=== PATIENT | male | born 1960 | race African-American/Black ===

== ENCOUNTER 2017-10-22 16:52 | Observation (INO) | payer OTHER ==
[~2017-10-22] VITALS: Ht 165.1 cm; Wt 79.3 kg
[2017-10-22] VITALS (11 sets, daily range): BP systolic 96–138; BP diastolic 63–85; PULSE 55–63; TEMP 36.4–36.7; O2SAT 97–99; Ht 165.1 cm; Wt 79.3 kg
[2017-10-22] MEDS ORDERED: ONDANSETRON INJ 2 MG/ML 2 ML VIAL IV STA (17:01)
[2017-10-22] MEDS ORDERED: SODIUM CHLORIDE 0.9% 1000ML 1,000 ML IV STA (17:01)
[2017-10-22] MEDS ORDERED: NiCARDipine HCL INJ 2.5 MG/ML 10 ML AMP ONE (17:06)
[2017-10-22] MEDS ORDERED: MIDAZOLAM HCL 1 MG/ML 2ML VIAL ONE (17:06)
[2017-10-22] MEDS ORDERED: HEPARIN SOD (PORCINE) 1000 UNIT/ML 10 ML VIAL ONE (17:06)
[2017-10-22] MEDS ORDERED: FENTANYL CITRATE INJ 50 MCG/1 ML 2 ML VIAL ONE (17:06)
[2017-10-22] MEDS ORDERED: NITROGLYCERIN/D5W 100MCG/ML 20ML SYR ONE (17:09)
[2017-10-22 17:14] LABS: BASO % 0.2 %; BASO ABS # 0.01 K/uL (0-0.2); EOS % 2.8 %; EOS ABS # 0.13 K/uL (0-0.5); HEMOGLOBIN 14.3 g/dL (14.0-18.0); LYMPH % 45.4 %; LYMPH ABS # 2.12 K/uL (1.2-3.4); MEAN CELL VOLUME 80.1 fL (80-100); MEAN CORPUSCULAR HEMOGLOBIN 26.6 pg (25-34); MEAN CORPUSCULAR HGB CONC 33.3 g/dl (32-36); MEAN PLATELET VOLUME 10.2 fL (7.4-10.4); MONO % 7.5 %; MONO ABS # 0.35 K/uL (0.11-0.59); NEUT % 44.1 %; NEUT ABS # 2.06 K/uL (1.4-6.5); PLATELET COUNT 281 K/uL (130-400); RED CELL DISTRIBUTION WIDTH CV 14.1 % (11.5-14.5); RED CELL DISTRIBUTION WIDTH SD 41.3 fL (36.4-46.3); WHITE BLOOD COUNT 4.67 K/uL (4.8-10.8)
[2017-10-22] MEDS ORDERED: HEPARIN SOD (PORCINE) 1000 UNIT/ML 10 ML VIAL IV ONE (17:15)
[2017-10-22 17:21] LABS: ISTAT CREATININE 1.1 mg/dl (0.6-1.3); ISTAT IONIZED CALCIUM 1.24 mmol/l (1.12-1.32); ISTAT POTASSIUM 4.3 mEq/L (3.3-5.0)
[2017-10-22 17:23] LABS: INR 0.9 (0.9-1.1)
--- NOTE | 2017-10-22 17:32 | DIAGNOSTIC IMAGING REPORT ---
CHEST ONE VIEW PORTABLE CLINICAL HISTORY: Chest pain. COMPARISON STUDY: No previous studies for comparison. FINDINGS: Lung volumes are at the lower limits of normal. Linear right lower lung opacity suggests atelectasis. No consolidation is noted to suggest pneumonia and there is no evidence for pulmonary edema. Borderline cardiomegaly is accentuated on this portable AP study. IMPRESSION: No acute cardiopulmonary findings. Electronically signed by: Paresh Fernandez M.D. 10/22/2017 5:31 PM Dictated Date/Time: 10/22/2017 5:30 PM
[2017-10-22 17:40] LABS: ALBUMIN 3.6 gm/dl (3.4-5.0); ALKALINE PHOSPHATASE 63 U/L (45-117); ALT/SGPT 24 U/L (12-78); AST/SGOT 15 U/L (15-37); BLOOD UREA NITROGEN 13 mg/dl (7-18); CALCIUM 8.8 mg/dl (8.5-10.1); CARBON DIOXIDE 28 mmol/L (21-32); GLUCOSE 90 mg/dl (70-99); LIPASE 161 U/L (73-393); POTASSIUM 4.2 mmol/L (3.5-5.1); SODIUM 139 mmol/L (136-145); TOTAL PROTEIN 7.6 gm/dl (6.4-8.2)
--- NOTE | 2017-10-22 17:45 | EMERGENCY ROOM VISIT NOTE ---
History Report prepared by Debbie: Maylin Titus Under the Supervision of: Dr. Dylon Velarde M.D. First contact with patient: 16:55 Stated Complaint: CHEST PAIN History of Present Illness The patient is a 57 year old male who presents to the Emergency Room with complaints of constant chest pain. Per EMS, the patient was benching 140 pounds last night when the chest pain began. Per EMS, the patient was given nitroglycerin and aspirin in the ambulance. The patient states that previously felt nauseous, and currently feels lightheaded, has indigestion, and states that his abdomen feels "crampy". The patient states that the pain lasted all night and into today. The patient rates his pain as a 6/10 prior to the nitroglycerin and aspirin, but states that it is now 3/10. Per the patient, he has never had this before. The patient also states that he got had a catheterization in August, two months ago, but states that no blockages were found. The patient states that he is a former smoker. He also states that his father of a heart attack at the age of 44. Per EMS, the patient previously got thyroid blood studies and is currently supposed to be on medication but is not currently. Source of History: patient, EMS Onset: last night Position: chest Quality: other (pain; 3/10 on arrival) Timing: constant Modifying Factors (Relieving): other (nitroglycerin and aspirin ) Associated Symptoms: + nausea Note: additional symptoms: lightheaded, indigestion, "crampy" abdomen Review of Systems See HPI for pertinent positives and negatives. A total of ten systems were reviewed and were otherwise negative. Past Medical & Surgical Medical Problems: (1) Chest pain Family History FH: heart disease Social History Smoking Status: Former Smoker Allergies Coded Allergies: No Known Allergies (Unverified , 10/22/17) Physical Exam Vital Signs Date Time Temp Pulse Resp B/P (MAP) Pulse Ox O2 Delivery O2 Flow Rate FiO2 10/22/17 18:02 55 20 121/70 (87) 99 Room Air 10/22/17 17:57 56 18 132/76 (94) 100 Room Air 10/22/17 17:52 53 18 126/74 (91) 100 Room Air 10/22/17 17:20 36.7 56 18 125/78 99 10/22/17 17:12 56 18 125/78 99 Nasal Cannula 2.0 10/22/17 17:08 Room Air 10/22/17 17:07 Nasal Cannula 2.0 10/22/17 17:07 Nasal Cannula 10/22/17 17:06 60 10/22/17 17:03 36.7 57 18 115/80 97 Nasal Cannula 2.0 Physical Exam GENERAL: Awake, alert, well-appearing, in no distress HENT: Normocephalic, atraumatic. Oropharynx unremarkable. EYES: Normal conjunctiva. Sclera non-icteric. NECK: Supple. No nuchal rigidity. RESPIRATORY: Clear to auscultation. No wheezes. Normal respiratory effort. CARDIAC: Normal rate. Normal rhythm. Extremities warm and well perfused. GI: Soft, non-distended. No tenderness to palpation. No rebound or guarding. No masses. RECTAL: Deferred. MUSCULOSKELETAL: Atraumatic. Chest examination reveals no tenderness. There is no CVA tenderness to palpation. LOWER EXTREMITIES: Calves are equal size bilaterally and non-tender. No edema NEURO: Normal sensorium. No sensory or motor deficits noted. No facial droop. SKIN: Warm and dry. No rash or jaundice. Healed scar on his anterior chest. Medical Decision & Procedures ER Provider Diagnostic Interpretation: Radiology results as stated below per my review and radiologist interpretation: CHEST ONE VIEW PORTABLE CLINICAL HISTORY: Chest pain. COMPARISON STUDY: No previous studies for comparison. FINDINGS: Lung volumes are at the lower limits of normal. Linear right lower lung opacity suggests atelectasis. No consolidation is noted to suggest pneumonia and there is no evidence for pulmonary edema. Borderline cardiomegaly is accentuated on this portable AP study. IMPRESSION: No acute cardiopulmonary findings. Electronically signed by: Paresh Fernandez M.D. 10/22/2017 5:31 PM Dictated Date/Time: 10/22/2017 5:30 PM Laboratory Results 10/22/17 17:01 Red Blood Count 5.37, Mean Corpuscular Volume 80.1, Mean Corpuscular Hemoglobin 26.6, Mean Corpuscular Hemoglobin Concent 33.3, Mean Platelet Volume 10.2, Neutrophils (%) (Auto) 44.1, Lymphocytes (%) (Auto) 45.4, Monocytes (%) (Auto) 7.5, Eosinophils (%) (Auto) 2.8, Basophils (%) (Auto) 0.2, Neutrophils # (Auto) 2.06, Lymphocytes # (Auto) 2.12, Monocytes # (Auto) 0.35, Eosinophils # (Auto) 0.13, Basophils # (Auto) 0.01 10/22/17 17:01 Test 10/22/17 17:01 10/22/17 17:06 White Blood Count 4.67 K/uL (4.8-10.8) Red Blood Count 5.37 M/uL (4.7-6.1) Hemoglobin 14.3 g/dL (14.0-18.0) Hematocrit 43.0 % (42-52) Mean Corpuscular Volume 80.1 fL (80-100) Mean Corpuscular Hemoglobin 26.6 pg (25-34) Mean Corpuscular Hemoglobin Concent 33.3 g/dl (32-36) Platelet Count 281 K/uL (130-400) Mean Platelet Volume 10.2 fL (7.4-10.4) Neutrophils (%) (Auto) 44.1 % Lymphocytes (%) (Auto) 45.4 % Monocytes (%) (Auto) 7.5 % Eosinophils (%) (Auto) 2.8 % Basophils (%) (Auto) 0.2 % Neutrophils # (Auto) 2.06 K/uL (1.4-6.5) Lymphocytes # (Auto) 2.12 K/uL (1.2-3.4) Monocytes # (Auto) 0.35 K/uL (0.11-0.59) Eosinophils # (Auto) 0.13 K/uL (0-0.5) Basophils # (Auto) 0.01 K/uL (0-0.2) RDW Standard Deviation 41.3 fL (36.4-46.3) RDW Coefficient of Variation 14.1 % (11.5-14.5) Immature Granulocyte % (Auto) 0.0 % Immature Granulocyte # (Auto) 0.00 K/uL (0.00-0.02) Prothrombin Time 9.9 SECONDS (9.0-12.0) Prothromb Time International Ratio 0.9 (0.9-1.1) Activated Partial Thromboplast Time 28.0 SECONDS (21.0-31.0) Partial Thromboplastin Ratio 1.1 Est Creatinine Clear Calc Drug Dose 67.6 ml/min Estimated GFR () 78.4 Estimated GFR (Non- 67.7 BUN/Creatinine Ratio 10.8 (10-20) Calcium Level 8.8 mg/dl (8.5-10.1) Total Bilirubin 0.2 mg/dl (0.2-1) Direct Bilirubin < 0.1 mg/dl (0-0.2) Aspartate Amino Transf (AST/SGOT) 15 U/L (15-37) Alanine Aminotransferase (ALT/SGPT) 24 U/L (12-78) Alkaline Phosphatase 63 U/L (45-117) Troponin I < 0.015 ng/ml (0-0.045) Total Protein 7.6 gm/dl (6.4-8.2) Albumin 3.6 gm/dl (3.4-5.0) Lipase 161 U/L (73-393) Bedside Hemoglobin 15.3 g/dl (14.0-18.0) Bedside Hematocrit 45 % (42-52) Bedside Sodium 141 mEq/L (135-144) Bedside Potassium 4.3 mEq/L (3.3-5.0) Bedside Chloride 100 mEq/L (101-112) Bedside Total CO2 30 mEq/l (24-31) Anion Gap 16.0 mmol/L (16-25) Bedside Blood Urea Nitrogen 13 mg/dl (7-18) Bedside Creatinine 1.1 mg/dl (0.6-1.3) Bedside Glucose (other) 94 mg/dl (70-99) Bedside Ionized Calcium (Jose Manuel) 1.24 mmol/l (1.12-1.32) Bedside Troponin I < 0.030 ng/ml (0-0.045) Laboratory results reviewed by me Medications Administered Medications (Trade) Dose Ordered Sig/Sonia Route Start Time Stop Time Status Last Admin Dose Admin Ondansetron HCl (Zofran Inj) 4 mg NOW STAT IV 10/22/17 17:01 10/22/17 17:03 DC 10/22/17 17:16 4 MG Sodium Chloride 1,000 ml @ 999 mls/hr Q1H1M STAT IV 10/22/17 17:01 10/22/17 18:01 DC 10/22/17 17:16 999 MLS/HR Midazolam HCl (Versed Inj) 2 mg STK-MED ONCE .ROUTE 10/22/17 17:06 10/22/17 17:07 DC 10/22/17 17:06 1 MG Fentanyl Citrate (Fentanyl Inj) 100 mcg STK-MED ONCE .ROUTE 10/22/17 17:06 10/22/17 17:07 DC 10/22/17 17:06 25 MCG Nicardipine HCl (Cardene Iv) 25 mg STK-MED ONCE .ROUTE 10/22/17 17:06 10/22/17 17:07 DC 10/22/17 17:06 25 MG Heparin Sodium (Porcine) (Heparin Iv Bolus) 5,000 unit ONE ONCE IV 10/22/17 17:15 10/22/17 17:16 DC 10/22/17 17:18 5,000 UNIT Sodium Chloride 1,000 ml @ 100 mls/hr Q10H IV 10/22/17 18:05 10/23/17 01:34 10/22/17 18:34 100 MLS/HR ECG Per My Interpretation Indication: chest pain Rate (beats per minute): 64 Rhythm: normal sinus Findings: T-wave inversion (lead III), ST elevation (V2, V3, V4) Comparison ECG Date: no prior available ED Course 1654: The patient was evaluated in room A1. A complete history and physical exam was performed. 1711: Dr. Neves-Cardiology is in the room and consenting the patient for catheterization. The patient was sent to the [facility]. Medical Decision Differential diagnosis: Etiologies such as cardiac ischemia, aortic dissection, pulmonary embolism, pneumonia, pneumothorax, musculoskeletal, infections, pericarditis, myocarditis , esophageal rupture, gastrointestinal, as well as others were entertained. Patient presents with complaint of some central and right-sided chest pain intermittently since yesterday when lifting weights. Some GI discomfort and nausea. Sent from [facility]. EKG concerning for possible precordial ST segment elevation. Strong family history of cardiac disease but none personally. Patient still 3 out of 10 pain. Received aspirin and nitro prior to arrival with some improvement of symptoms. Heart alert was called upon receiving EKG. No priors are available here. Doubt dissection or PE. No evidence of pneumonia. Could be musculoskeletal chest wall pain versus GI upset but EKG findings are concerning and Dr. Neves from cardiology plans to take the patient to [facility] to evaluate the coronaries. Patient does later state that he thinks he had a catheterization in August that was normal. Again limited as with no prior EKGs. Point of care troponin negative. Patient received heparin in the emergency department for proceeding to the [place] [facility]. Medication Reconcilliation Current Medication List: was personally reviewed by me Blood Pressure Screening Patient's blood pressure: Normal blood pressure Impression Primary Impression: STEMI (ST elevation myocardial infarction) Additional Impression: Chest pain Scribe Attestation The scribe's documentation has been prepared under my direction and personally reviewed by me in its entirety. I confirm that the note above accurately reflects all work, treatment, procedures, and medical decision making performed by me. Departure Information Dispostion Other (sent to [facility]) Referrals No Doctor, Assigned (PCP) Problem Qualifiers Primary Impression: STEMI (ST elevation myocardial infarction) Involved coronary artery: unspecified coronary artery Qualified Codes: I21.3 - ST elevation (STEMI) myocardial infarction of unspecified site Additional Impression: Chest pain Chest pain type: unspecified Qualified Codes: R07.9 - Chest pain, unspecified
--- NOTE | 2017-10-22 17:55 | Pre Sedation Assessment ---
Pre Sedation Assessment General Date of Sedation: Oct 22, 2017. Vital Signs Past 12 Hours Date Time Temp Pulse Resp B/P (MAP) Pulse Ox O2 Delivery O2 Flow Rate FiO2 10/22/17 17:12 56 18 125/78 99 Nasal Cannula 2.0 10/22/17 17:08 Room Air 10/22/17 17:07 Nasal Cannula 2.0 10/22/17 17:07 Nasal Cannula 10/22/17 17:06 60 10/22/17 17:03 36.7 57 18 115/80 97 Nasal Cannula 2.0 Review Cardiovascular: regular rate, rhythm, no edema Lungs: chest non-tender, lungs clear Pre-Sedation Airway Assessment Smoking Status: Former Smoker Hx of Sleep Apnea: No Hx of difficult intubation: No Short Thick Neck: No Thyro-mental Distance: > 3 Finger Breadths Oral Cavity: WNL Mallampati Classification: Class III ASA Classification: Class III Procedure Planning Contraindications for Sedation: None Current Medications Reviewed: Yes Notes The planned sedation has been discussed with the patient. Informed Consent was obtained. I have identified the patient, determined the appropriateness of sedation and have assessed the patient immediately prior to the procedure. All medicine(s) and interventions are by my order.
--- NOTE | 2017-10-22 17:55 | CARDIOLOGY CONSULTATION ---
DATE OF CONSULTATION: 10/22/2017 CONSULTATION REQUESTED BY: Emergency Department. REASON FOR CONSULTATION: Heart alert/suspected anterior STEMI. HISTORY OF PRESENT ILLNESS: Mr. Torres is a 57-year-old prisoner who presented with stuttering chest pain over the last 2 days found to have anterior ST elevations for which heart alert called. The patient states he was in his usual state of health, lifting weights yesterday when afterwards developed right-sided chest pain. Pain persisted for hours, but was eventually able to go for sleep. This morning, pain was worse and eventually presented to Medical where ECG prompted transfer to [facility] ED. EKG here showed ST elevations in V2 through V4 and a heart alert was activated. The patient states that pain at its worst was a 6/10, now down to 2/10. Has never had similar pain in the past. The patient has no significant prior cardiac history. Did undergo a cardiac catheterization approximately 2-3 months ago in the setting of a questionable CVA/right-sided neck discomfort. The patient states he was found to have a thyroid nodule and was told that his coronary catheterization was unremarkable. PAST MEDICAL HISTORY: As discussed above. No other medical issues. FAMILY HISTORY: Father had an [place] in his 40s. SOCIAL HISTORY: Quit smoking 1 month ago. ALLERGIES: No known drug allergies. REVIEW OF SYSTEMS: Not completed in the emergent situation. PHYSICAL EXAMINATION: VITAL SIGNS: Temperature 36.7, pulse 57, blood pressure 115/80, he is satting 97% on 2 L. GENERAL: The patient appears comfortable, in no acute distress. HEENT: Sclerae anicteric. Oropharynx is clear. His mucous membranes are moist. NECK: Supple with no lymphadenopathy. LUNGS: Clear to auscultation bilaterally. HEART: Regular rate and rhythm with no murmurs, rubs or gallops. ABDOMEN: Soft, nontender. EXTREMITIES: Warm. He had no significant lower extremity edema. He had 2+ distal pulses including a 2+ right radial pulse. NEUROLOGIC: Nonfocal. DATA: White blood cell count is 4.7, hemoglobin of 14.3, platelets of 281. Sodium of 141, potassium of 4.3, BUN of 13, creatinine of 1.1. Chest x-ray showed no acute cardiopulmonary process. EKG showed sinus rhythm at a ventricular rate of 64. There are anterior ST elevations in V2 through V5 with T-wave inversion in III and aVF. IMPRESSION AND PLAN: 1. Stuttering chest pain, suspected acute myocardial infarction. 2. Family history of premature coronary artery disease. 3. Prior tobacco abuse. Mr. Torres is here with intermittent chest pain over the last 24 hours, worse today and persisting. On presentation, he was found to have anterior ST elevations in the setting of active chest pain and a heart alert was activated. With J-point elevation on ECG not convinced represents true AMI but in the setting of risk factors and continue pain will plan to proceed with cardiac catheterization for further evaluation. Plan to perform procedure via right radial artery. Discussed risks, benefits, alternative procedure with the patient. He is willing to proceed. Further recommendations pending findings. Thank you for consultation. RALPH
--- NOTE | 2017-10-22 17:56 | Post Sedation Assessment ---
Post Sedation Assessment General Date of Sedation Oct 22, 2017. Vital Signs: Vital Signs Past 12 Hours Date Time Temp Pulse Resp B/P (MAP) Pulse Ox O2 Delivery O2 Flow Rate FiO2 10/22/17 17:12 56 18 125/78 99 Nasal Cannula 2.0 10/22/17 17:08 Room Air 10/22/17 17:07 Nasal Cannula 2.0 10/22/17 17:07 Nasal Cannula 10/22/17 17:06 60 10/22/17 17:03 36.7 57 18 115/80 97 Nasal Cannula 2.0 Post Procedure Recovery Score Activity: (2) Moves 4 extremities * Respiration: (2) Deep breath/cough Circulation: (2) +/-20% PreAnes Value Consciousness: (2) Fully Awake Oxygen Saturation: (2) > 92% On Room Air Discharge Sedation Level of Care: Fast Track Phase II Post Sedation Plan On clinical assessment, the patient appears to have tolerated the sedation without complications. Patient is recovering as anticipated. Patient will continue to be monitored by nursing and may be discharged when sedation discharge criteria are met per below protocol. Upon Completions of procedure and additional 15 minutes continue every 5 minute vital signs and the P.A.R. score; then discharge to a Phase I or Fast Track to Phase II per the following guidelines: * Discharge Patient to appropriate Phase II area if PAR is 8 or greater or return to pre- procedure baseline. The post - procedure orders will be as directed. * If PAR score is less than 8 or not return to pre-procedure baseline then patient will follow Phase I monitoring till PAR is reached for Phase II. The Phase I may be done in procedure room or may call to secure a Phase I area. * If naloxone or flumazenil are used for reversal, hold in Phase I for an additional 60 -120 minutes before discharge to Phase II. Please call the Sedation Physician to re-evaluate and complete post-note for discharge to Phase II area. Do NOT discharge from procedure sedation or Phase 1 until post- sedation evaluation note is complete by procedure /sedation MD Sedation Discharge Instructions to be given to the patient at discharge to home.
[2017-10-22] MEDS ORDERED: SODIUM CHLORIDE 0.9% 1000ML 1,000 ML IV SCH (18:05)
--- NOTE | 2017-10-22 18:05 | Cardiac Catheterization ---
Procedure Note Procedure Date Oct 22, 2017. Pre-Procedure Diagnosis Acute Coronary Syndrome AUC Score 9 Post-Procedure Diagnosis Mild CAD, Normal LV Systolic Function, Normal Intracardiac Pressures Procedure(s) Performed Coronary Angiography, Left Heart Cath, LV Angiography [employer] [facility] Labor Delivery(s) Sanjeev Estimated Blood Loss 10 Medication(s) Fentanyl, Heparin, Nitroglycerin, Versed, Lidocaine 1% Summary of Findings Indication: Suspected ACS/Heart alert; active chest pain with anterior ST elevations. Access: 6Fr right radial artery Catheters: [place], JR4, pigtail Findings: LM - Angiographically normal LAD - Large vessel, angiographically normal; slow flow consistent with microvascular dysfunction. Circumflex - Angiographically normal RCA - Dominant, 20-30% early-mid stenosis, minimal distal disease. LVEDP - 16 LVEF 60% with no regional wall motion abnormalities. Arterial Closure: TR Band Summary: 1. Mild non-obstructive coronary artery disease - 20-30% early-mid RCA disease - slow LAD flow consistent with microvascular dysfunction. 2. Normal intracardiac filling pressure 3. Normal LV systolic function. LVEF 60%. Recommendations: Admit to telemetry for observation. Echo in AM Evaluate for non-cardiac causes of chest pain Continued ASCVD risk factor modification including continued smoking cessation Hemodynamics Rest Ao: 98/63/79 Final Ao: 117/69/88 LV: 109/16 Recommendations Medical therapy and/or Counseling Specimens None Radiation Exposure (mGy) 1445 Contrast (mls) 70 Fluids (cc crystalloids) 35 Drains none Anesthesia moderate Procedural Complication(s) None Disposition PCU ACC Data Cardiac Status Clinical evaluation leading to the procedure CAD Presntation: Unstable angina Anginal Classification: CCS IV Heart Failure: No, NYHA Class: CCS I Closure Device Percutaneous Entry Location: Radial Closure Device: Radial Band Recommendations: Medical therapy and/or Counseling Intraprocedure Events Significant Dissection: No Perforation: No
--- NOTE | 2017-10-22 18:12 | History and Physical ---
History & Physical Date & Time of Service: Oct 22, 2017 at 18:07 Chief Complaint: Chest Pain Primary Care Physician: Kenneth ESQUEDA History of Present Illness Source: patient, hospital records 57 y/o M c/o chest pain. Pt states he was in the gym lifting weights yesterday when he had sudden onset of L sided chest pain. This pain did not resolve and was still present when he woke in the AM. He went to the medical clinic at [facility] and an EKG there suggested ST elevations. He was brought to [facility] for further evaluation. Repeat EKG was still noted for ST abnormalities so he was taken to the [facility] emergently. Cath was neg and plans for overnight observation were suggested by Dr. Neves. Pt notes that he also had some sort of epigastric pain "that felt like heartburn and could use a TUMS or something". He feels this was distinct from the chest pain but did not get to ask for anything for this prior to coming here. Pt notes that his chest pain resolved during the heart cath and has not returned. Pt denies fever, SOB, abd pain, n/v/c/d, LE pain or swelling. Pt denies prior hx of chest pain. Pt notes he had a cath 2-3 months ago at [facility] in [place], [place]. He states this was for stroke like sx and was neg. He states he was found to have thyroid nodule and was to be started on thyroid medications, but this was not started yet. He states he was there for about 5 days. Denies chest pain with that episode. Past Medical/Surgical History Recent cath 2-3 months ago Thyroid nodule being followed as outpt Family History Father: from [place] in his 40s Social History Smoking Status: Former Smoker (quit x1 month) Alcohol Use: hx of use, but none since incarceration 2 yrs ago Drug Use: none Allergies Coded Allergies: No Known Allergies (Unverified , 10/22/17) Review of Systems Pertinent positives and negatives reviewed in HPI--all others negative Physical Exam Vital Signs Date Time Temp Pulse Resp B/P (MAP) Pulse Ox O2 Delivery O2 Flow Rate FiO2 10/22/17 17:20 36.7 56 18 125/78 99 10/22/17 17:12 56 18 125/78 99 Nasal Cannula 2.0 10/22/17 17:08 Room Air 8/21/18 17:07 Nasal Cannula 2.0 10/22/17 17:07 Nasal Cannula 10/22/17 17:06 60 10/22/17 17:03 36.7 57 18 115/80 97 Nasal Cannula 2.0 General Appearance: WD/WN, no apparent distress Head: normocephalic, atraumatic Eyes: normal inspection, sclerae normal Respiratory/Chest: normal breath sounds, no respiratory distress Cardiovascular: regular rate, rhythm, no edema Abdomen/GI: non tender, soft, + distended Extremities/Musculoskelatal: no calf tenderness, no pedal edema Neurologic/Psych: alert, normal mood/affect, oriented x 3 Skin: normal color, warm/dry Diagnostics Laboratory Results Results Past 24 Hours Test 10/22/17 17:01 10/22/17 17:06 Range/Units White Blood Count 4.67 4.8-10.8 K/uL Red Blood Count 5.37 4.7-6.1 M/uL Hemoglobin 14.3 14.0-18.0 g/dL Hematocrit 43.0 42-52 % Mean Corpuscular Volume 80.1 80-100 fL Mean Corpuscular Hemoglobin 26.6 25-34 pg Mean Corpuscular Hemoglobin Concent 33.3 32-36 g/dl Platelet Count 281 130-400 K/uL Mean Platelet Volume 10.2 7.4-10.4 fL Neutrophils (%) (Auto) 44.1 % Lymphocytes (%) (Auto) 45.4 % Monocytes (%) (Auto) 7.5 % Eosinophils (%) (Auto) 2.8 % Basophils (%) (Auto) 0.2 % Neutrophils # (Auto) 2.06 1.4-6.5 K/uL Lymphocytes # (Auto) 2.12 1.2-3.4 K/uL Monocytes # (Auto) 0.35 0.11-0.59 K/uL Eosinophils # (Auto) 0.13 0-0.5 K/uL Basophils # (Auto) 0.01 0-0.2 K/uL RDW Standard Deviation 41.3 36.4-46.3 fL RDW Coefficient of Variation 14.1 11.5-14.5 % Immature Granulocyte % (Auto) 0.0 % Immature Granulocyte # (Auto) 0.00 0.00-0.02 K/uL Prothrombin Time 9.9 9.0-12.0 SECONDS Prothromb Time International Ratio 0.9 0.9-1.1 Activated Partial Thromboplast Time 28.0 21.0-31.0 SECONDS Partial Thromboplastin Ratio 1.1 Sodium Level 139 136-145 mmol/L Potassium Level 4.2 3.5-5.1 mmol/L Chloride Level 105 98-107 mmol/L Carbon Dioxide Level 28 21-32 mmol/L Anion Gap 6.0 16.0 16-25 mmol/L Blood Urea Nitrogen 13 7-18 mg/dl Creatinine 1.20 0.60-1.40 mg/dl Est Creatinine Clear Calc Drug Dose 67.6 ml/min Estimated GFR () 78.4 Estimated GFR (Non- 67.7 BUN/Creatinine Ratio 10.8 10-20 Random Glucose 90 70-99 mg/dl Calcium Level 8.8 8.5-10.1 mg/dl Total Bilirubin 0.2 0.2-1 mg/dl Direct Bilirubin < 0.1 0-0.2 mg/dl Aspartate Amino Transf (AST/SGOT) 15 15-37 U/L Alanine Aminotransferase (ALT/SGPT) 24 12-78 U/L Alkaline Phosphatase 63 45-117 U/L Troponin I < 0.015 0-0.045 ng/ml Total Protein 7.6 6.4-8.2 gm/dl Albumin 3.6 3.4-5.0 gm/dl Lipase 161 73-393 U/L Bedside Hemoglobin 15.3 14.0-18.0 g/dl Bedside Hematocrit 45 42-52 % Bedside Sodium 141 135-144 mEq/L Bedside Potassium 4.3 3.3-5.0 mEq/L Bedside Chloride 100 101-112 mEq/L Bedside Total CO2 30 24-31 mEq/l Bedside Blood Urea Nitrogen 13 7-18 mg/dl Bedside Creatinine 1.1 0.6-1.3 mg/dl Bedside Glucose (other) 94 70-99 mg/dl Bedside Ionized Calcium (Jose Manuel) 1.24 1.12-1.32 mmol/l Bedside Troponin I < 0.030 0-0.045 ng/ml Diagnostic Radiology CXR neg for acute EKG ST abnormalities Impression Assessment and Plan 57 y/o M who was admitted for observation on 10/22 for chest pain Chest pain: concerning for ACS given hx and EKG noted for ST elevations Taken from ED to [facility], cath was neg Hx of neg cath 2-3 months ago as well, records requested Trop neg x1, serials pending although likely to have elevation given cath Monitor on tele CBC, PRP WNL CXR neg Hx of thyroid nodule dx with above hospitalization Pt states that he is to be on some sort of thyroid medication but was not started yet, records requested Indigestion: no hx of prior, TUMS PRN Feels this was separate and different from chest pain Other: Full code SCDs for DVT proph given likely short duration of admission AHA diet Resuscitation Status VTE Prophylaxis Will order VTE Prophylaxis: Yes
[2017-10-22] MEDS ORDERED: MAGNESIUM HYDROXIDE SUSP 30 ML UDC PO PRN (18:15)
[2017-10-22] MEDS ORDERED: NITROGLYCERIN 0.4 MG SL PER TAB CHARGE SL PRN (18:15)
[2017-10-22] MEDS ORDERED: ACETAMINOPHEN 325 MG TAB PO PRN ×2 (18:15)
[2017-10-22] MEDS ORDERED: ONDANSETRON INJ 2 MG/ML 2 ML VIAL IV PRN (18:15)
[2017-10-22] MEDS ORDERED: CALCIUM CARBONATE 500 MG CHEWABLE PO PRN (18:30)
[2017-10-22] MEDS ORDERED: IV FLUIDS COMPLETED PRN (18:30)
[2017-10-23 04:31] VITALS: BP 114/69; PULSE 87; TEMP 37.2; O2SAT 95
[2017-10-23 06:53] VITALS: BP 115/63; PULSE 94; TEMP 37.1; O2SAT 96
[2017-10-23 08:54] LABS: CALCIUM 8.5 mg/dl (8.5-10.1); CREATININE 1.22 mg/dl (0.60-1.40); POTASSIUM 3.9 mmol/L (3.5-5.1)
[2017-10-23] MEDS ORDERED: PANTOprazole SOD 40 MG TAB PO SCH (09:00)
[2017-10-23] MEDS ORDERED: ASPIRIN 81 MG ECTAB PO SCH (09:00)
[2017-10-23 12:02] VITALS: BP 111/56; PULSE 89; TEMP 36.7; O2SAT 97
[2017-10-23] MEDS ORDERED: PANT40TA2 PO (14:19)
--- NOTE | 2017-10-23 14:19 | Discharge Instructions ---
Discharge Instructions Date of Service Oct 23, 2017. Admission Reason for Admission: Chest Pain Discharge Discharge Diagnosis / Problem: abnormal ECG, normal heart cath Discharge Goals Goal(s): Diagnostic testing, Therapeutic intervention Activity Recommendations Activity Limitations: as noted below Lifting Limitations: gradually increase as tolerated . Current Hospital Diet Patient's current hospital diet: AHA Diet (Heart Healthy) Discharge Diet Recommended Diet: Regular Diet Pending Studies Studies pending at discharge: no Laboratory Results Lipid Panel Test 10/23/17 06:08 Range/Units Triglycerides Level 90 0-150 mg/dl Cholesterol Level 136 0-200 mg/dl HDL Cholesterol 37 mg/dl Cholesterol/HDL Ratio 3.7 LDL Cholesterol, Calculated 81 mg/dl Medical Emergencies . Who to Call and When: Medical Emergencies: If at any time you feel your situation is an emergency, please call 911 immediately. . Non-Emergent Contact Non-Emergency issues call your: Primary Care Provider Call Non-Emergent contact if: temperature is above 101, your pain is not controlled . . "Provider Documentation" section prepared by Yousif Gallardo. .
--- NOTE | 2017-10-23 14:27 | Discharge Summary ---
Discharge Summary Date of Service Oct 23, 2017. Discharge Summary Admission Date: Oct 22, 2017 at 18:07 Discharge Date: Oct 23, 2017 Discharge Disposition: Home Principal Diagnosis: chest pain wiht ecg changes but normal LHC Procedures: left heart cath without occlusion Medication Reconciliation New Medications: Pantoprazole (Pantoprazole Sodium) 40 Mg Tab 40 MG PO BID, #60 TAB Discharge Exam Review of Systems: Constitutional: No fever, No chills, No weakness Eyes: No eye pain, No redness Respiratory: No cough, No sputum, No shortness of breath Cardiovascular: No chest pain, No edema Abdomen: No pain, No nausea, No vomiting, No diarrhea Musculoskeletal: No joint pain, No muscle pain, No swelling Psychiatric: No depression symptoms, No anxiety Physical Exam: General Appearance: WD/WN, no apparent distress Eyes: normal inspection, sclerae normal Neck: supple, no JVD Respiratory/Chest: chest non-tender, lungs clear Cardiovascular: regular rate, rhythm, normal peripheral pulses Abdomen / GI: normal bowel sounds, non tender, soft Extremities: no pedal edema, normal range of motion Neurologic/Psychiatric: alert, oriented x 3 Skin: normal color, warm/dry, no rash Hospital Course 57 M presented with Chest pain and ECG changes, did have urgent LHC without any significant coronary stenosis, Pt states also had a left heart cath two months ago at [facility] fpc will released with PPI discussed with fpc Total Time Spent: Greater than 30 minutes This includes examination of the patient, discharge planning, medication reconciliation, and communication with other providers. Discharge Instructions Please refer to the electronic Patient Visit Report (Discharge Instructions) for additional information.
[2017-10-23 14:56] VITALS: BP 111/56; PULSE 89; TEMP 36.7; O2SAT 97
== END 2017-10-23 16:30 | disposition home or self-care (01) ==
LOC: EDBD 16:52 → C.EDA 16:53 → C.2E 18:07
PROVIDERS: ADMIT Family Medicine; ATTEND Internal Medicine
DX: R07.9 Chest pain, unspecified (principal); R94.31 Abnormal electrocardiogram [ECG] [EKG]; Z87.891 Personal history of nicotine dependence; Z82.49 Family history of ischemic heart disease and other diseases of the circulatory system